=== PATIENT | female | born 1980 | race American Indian/Alaskan Native ===

== ENCOUNTER 2016-07-23 12:07 | Emergency (ER) | payer SELFPAY ==
[2016-07-23 12:53] LABS: Basophils % (Auto) 0.2 % (0.0-1.8); Eosinophils % (Auto) 0.5 % (0.0-4.3); Hematocrit 32.3 % (30.3-42.9); Hemoglobin 10.6 gm/dl (10.1-14.3); Mean Corpuscular HGB Conc 33 % (30-34); Mean Corpuscular Hemoglobin 27 pg (28-32); Mean Corpuscular Volume 83 fl (79-97); Platelet Count 160 K/mm3 (140-440); Red Blood Count 3.89 M/mm3 (3.65-5.03); Red Cell Distribution Width 14.4 % (13.2-15.2); White Blood Count 4.6 K/mm3 (4.5-11.0)
[2016-07-23 13:18] LABS: Anion Gap 18 mmol/L; Blood Urea Nitrogen 4 mg/dL (7-17); Calcium 8.7 mg/dL (8.4-10.2); Carbon Dioxide 23 mmol/L (22-30); Chloride 101.8 mmol/L (98-107); Glucose 93 mg/dL (65-100); Potassium 4.3 mmol/L (3.6-5.0); Sodium 138 mmol/L (137-145)
[2016-07-23 13:42] LABS: Amylase 101 units/L (27-131); Lipase 20 units/L (13-60)
--- NOTE | 2016-07-23 13:49 | Emergency Department Report ---
Entered by WISAM MCKEON, acting as scribe for BRIGITTE ZAYAS PA. Chief Complaint: Nausea/Vomiting/Diarrhea Stated Complaint: VOMITTING /FATIGUE Time Seen by Provider: 07/23/16 12:58 - HPI History of Present Illness: 36 y/o female presents with possible after taking two positive home tests. Pt denies abd pain, vaginal bleeding or discharge, burning during urination, chest pain or SOB. LMP was 05/08/2016, she has two children, this is her third . - ROS Review of Systems: as noted in HPI - Exam Vital Signs: Vital Signs 07/23/16 12:33 Temperature 99.4 F Pulse Rate 102 H Respiratory 20 Rate Blood Pressure 142/81 O2 Sat by Pulse 99 Oximetry Physical Exam: General: 36-year-old female in no acute distress. Well-developed, well- nourished. CV: Regular rate and rhythm. No murmurs rubs or gallops. Lungs: Clear to auscultation bilaterally. Abdomen: No tenderness to palpation. No guarding or rebound tenderness. Normal bowel sounds. Mini Neuro: Alert and oriented 3. MSE screening note: Focused history and physical exam performed. Due to findings the following was ordered: ED Medical Decision Making - Lab Data Result diagrams: 07/23/16 12:43 ED Disposition for MSE Condition: Stable This documentation as recorded by the scribe,WISAM MCKEON,accurately reflects the service I personally performed and the decisions made by ,BRIGITTE ZAYAS PA.
[2016-07-23 14:48] LABS: Bilirubin,Urine NEG (Negative); Blood,Urine NEG (Negative); Ketones,Urine NEG (Negative); Leukocyte Esterase,Urine NEG (Negative); Mucus,Urine FEW /HPF; Nitrite,Urine NEG (Negative); Protein,Urine <15 mg/dL mg/dL (Negative); Urobilinogen,Urine < 2.0 mg/dL (<2.0); WBC,Urine < 1.0 /HPF (0.0-6.0)
[2016-07-23] MEDS ORDERED: NACL 0.9% 1000 ML 1,000 ML IV ONE (16:10)
--- NOTE | 2016-07-23 16:35 | Emergency Department Report ---
HPI - General Chief Complaint: Nausea/Vomiting/Diarrhea Time Seen by Provider: 07/23/16 12:58 - HPI HPI: This is a 36-year-old Afro-Chinese female who presents to the emergency department with complaint of a few days of nausea, vomiting and extreme fatigue while . The patient says that her last menstrual cycle is May 082016. She took a home test was positive. However she has not had any care and has not been on vitamins. She does not have a LEAD APPLIER. With this the patient would be with 2 live children. One previous vaginal delivery and one previous . She is not taken anything for symptoms prior to presentation. No recent travel or sick contacts at home. She denies any fever, back pain, dysuria, vaginal bleeding or discharge. She occasionally has some abdominal cramping. ED Past Medical Hx - Past Medical History Previous Medical History?: Yes Additional medical history: vaginal delivery x1 - Surgical History Past Surgical History?: Yes Additional Surgical History: x 1 - Social History Smoking Status: Never Smoker Substance Use Type: None - Medications Home Medications: Home Medications Medication Instructions Recorded Confirmed Last Taken Type Vit No.130/Iron/FA 1 each PO QDAY #30 tablet 07/23/16 Unknown Rx [ Tablet] ED Review of Systems ROS: Stated complaint: VOMITTING /FATIGUE Other details as noted in HPI Comment: All other systems reviewed and negative Constitutional: other (fatigue). denies: chills, fever Eyes: denies: eye pain, eye discharge, vision change ENT: denies: ear pain, throat pain Respiratory: denies: cough, shortness of breath, wheezing Cardiovascular: denies: chest pain, palpitations Gastrointestinal: abdominal pain (cramping), nausea, vomiting Genitourinary: denies: urgency, dysuria, discharge Musculoskeletal: denies: back pain, joint swelling, arthralgia Skin: denies: rash, lesions Neurological: denies: headache, weakness, paresthesias Physical Exam - Physical Exam Vital Signs: Vital Signs 07/23/16 07/23/16 12:33 15:24 Temperature 99.4 F Pulse Rate 102 H 74 Respiratory 20 16 Rate Blood Pressure 142/81 Blood Pressure 123/76 [Left] O2 Sat by Pulse 99 95 Oximetry Physical Exam: GENERAL: The patient is well-developed well-nourished. HEENT: Normocephalic. Atraumatic. Extraocular motions are intact. Patient has moist mucous membranes. Pupils equal reactive to light bilaterally. No nystagmus. NECK: Supple. Trachea is midline. CHEST/LUNGS: Clear to auscultation. There is no respiratory distress noted. HEART/CARDIOVASCULAR: Regular. There is no tachycardia. There is no gallop rub or murmur. ABDOMEN: Abdomen is soft, nontender. Patient has normal bowel sounds. There is no abdominal distention. No guarding rebound tenderness. SKIN: Skin is warm and dry. NEURO: The patient is awake, alert, and oriented. The patient is cooperative. The patient has no focal neurologic deficits. The patient has normal speech. Cranial nerves II through XII grossly intact. MUSCULOSKELETAL: There is no tenderness or deformity. There is no limitation range of motion. There is no evidence of acute injury. Muscle strength 5 out of 5 for upper and lower extremities bilateral. ED Course Vital Signs 07/23/16 07/23/16 12:33 15:24 Temperature 99.4 F Pulse Rate 102 H 74 Respiratory 20 16 Rate Blood Pressure 142/81 Blood Pressure 123/76 [Left] O2 Sat by Pulse 99 95 Oximetry ED Medical Decision Making - Lab Data Result diagrams: 07/23/16 12:43 07/23/16 12:43 - EKG Data -: EKG Interpreted by Mi EKG shows normal: sinus rhythm, axis, intervals, QRS complexes (Q waves to the septal leads), ST-T waves Rate: normal - EKG Data When compared to previous EKG there are: previous EKG unavailable Interpretation: other (Q waves to the septal leads) - Radiology Data Radiology results: report reviewed Ultrasound evaluation of the gravid uterus shows a single viable intrauterine at about 12 weeks. Inferior placental margin adjacent to the region of the internal cervical os. Wet marginal or slight placenta previa. Possible small subchorionic bleed. - Medical Decision Making 36-year-old female with no previous care presents with some dizziness and generalized weakness. Patient's labs are mostly unremarkable. She had no signs of infection in the blood or urine, normal electrolytes, no renal or glucose abnormalities. She has normal thyroid function. She has a strong beta hCG hormone. ultrasound shows a live intrauterine at about 12 weeks. Vital signs stable including being afebrile. Patient was reevaluated multiple times of her multiple hours and has remained stable. She was ambulatory in the emergency department and appeared stable while doing so. Patient was started on vitamins and given multiple referrals for OB/ LEAD APPLIER. She will return to the ER with any worsening of her symptoms or any acute distress. - Differential Diagnosis , miscarriage, hypothyroidism, diabetes, orthostatic hypotension Critical Care Time: No Critical care attestation.: If time is entered above; I have spent that time in minutes in the direct care of this critically ill patient, excluding procedure time. ED Disposition Clinical Impression: Dizziness Qualifiers: Weeks of gestation: 17 weeks Qualified Code(s): Z3A.17 - 17 weeks gestation of Disposition: DISCHARGED TO HOME OR SELFCARE Is pt being admited?: No Condition: Stable Instructions: (ED), Lightheadedness (ED), Dizziness (ED) Additional Instructions: Please follow-up with an WEB COMMUNICATIONS SPECIALIST in the next few days. Return to the emergency department with any worsening of your symptoms or any acute distress. I have started you on vitamins. You can take Tylenol every 4 hours as needed , using weight-based dosing, for discomfort or any fever. Otherwise do not take any medications that are not prescribed by a physician. Prescriptions: Vit No.130/Iron/FA [ Tablet] 1 each PO QDAY #30 tablet Referrals: SAGAR LEON MD [Primary Care Provider] - 3-5 Days GERMAN BLACKBURN MD [Staff Physician] - 3-5 Days KEVIN GRIFFIN MD [Staff Physician] - 3-5 Days Time of Disposition: 19:27
--- NOTE | 2016-07-23 18:39 | Ultrasound Report ---
FINAL REPORT EXAM: US OB \T\lt; = 14 WEEKS FETUS HISTORY: preg, abd pain TECHNIQUE: Ultrasound evaluation of the gravid uterus PRIORS: None. FINDINGS: A gestational sac is present in the endometrial cavity containing a pole. viability is documented with evidence of cardiac activity. pole crown-rump length: 52.8 mm heart rate: 172 beats per minute Estimated gestational age by ultrasound: 12 weeks 0 days Estimated delivery date: 02/04/2017 The uterine echotexture is homogenous and without evidence of mass. Closed cervix with 3.8 cm length. Inferior placental margin is noted adjacent to the region of the internal cervical os. This may reflect marginal or slight placenta previa. Thin crescentic hypoechoic collection adjacent to the gestational sac is suggestive of a subchorionic bleed measuring 2.3 x 4.7 cm, and 4 mm thick No evidence of solid ovarian mass. The adnexa are normal. There is no cul-de-sac free fluid. IMPRESSION: Single viable early intrauterine with the above parameters Inferior placental margin adjacent to the region of the internal cervical os may reflect marginal or slight placenta previa Small collection adjacent to the inferior margin of the gestational sac suggestive of subchorionic hemorrhage
[2016-07-23 19:48] VITALS: BP 155/84
== END 2016-07-23 20:07 | disposition home or self-care (01) ==
LOC: ED 12:07
DX: O26.892 Other specified pregnancy related conditions, second trimester (principal); R42 Dizziness and giddiness; Z3A.17 17 weeks gestation of pregnancy
CPT/HCPCS: 36415; 76801; 80048; 81001; 82150; 82962; 83690; 84443; 84702; 85025; 93005; 93010; 96360; 99284; J7030

== ENCOUNTER 2016-09-17 08:10 | Outpatient (CLI) | payer SELFPAY ==
--- NOTE | 2016-09-17 09:19 | Emergency Department Report ---
ED HPI - General Chief complaint: Recheck/Abnormal Lab/Rx Stated complaint: ABD PAIN Time Seen by Provider: 09/17/16 08:37 Source: patient Mode of arrival: Ambulatory Limitations: No Limitations - History of Present Illness Initial comments: PT states she is 19 weeks . PT states yesterday she was walking down the stairs and she slipped and fell, landing on her R abd. PT states she quickly got up. PT states she had abd pain last night. PT states she does not have any pain currently but she wants a scan to check the baby. PT denies having an quality control projectionist or any care for this . PT is Complaint: abdominal trauma -: Sudden Location: abdomen Consistency: now resolved Associated symptoms: nausea/vomiting, abdominal pain. denies: vaginal bleeding , vaginal discharge Vaginal bleeding: none :: Yes Number of weeks : 19 OB History - Current : no complications (that pt is aware of) OB History - Previous Pregnancies: other (pt needed with previous ) Pre- care: previous ultrasound confi (done in this ED ) - Related Data : 3 Para: 2 Previous Rx's Medication Instructions Recorded Last Taken Type Vit-Fe Fumar-FA [ 1 tab PO QDAY #30 tablet 09/17/16 Unknown Rx Vitamin] Allergies Allergy/AdvReac Type Severity Reaction Status Date / Time No Known Allergies Allergy Verified 09/17/16 08:17 ED Review of Systems ROS: Stated complaint: ABD PAIN Other details as noted in HPI Comment: All other systems reviewed and negative Respiratory: denies: cough Cardiovascular: denies: chest pain, syncope Gastrointestinal: abdominal pain (now resolved ), vomiting (x 1 - yesterday ) Genitourinary: denies: dysuria, discharge Musculoskeletal: denies: back pain ED Past Medical Hx - Past Medical History Previous Medical History?: No Additional medical history: vaginal delivery x1 - Surgical History Additional Surgical History: x 1 - Social History Smoking Status: Never Smoker Substance Use Type: None - Medications Home Medications: Home Medications Medication Instructions Recorded Confirmed Last Taken Type Vit-Fe Fumar-FA [ 1 tab PO QDAY #30 tablet 09/17/16 Unknown Rx Vitamin] ED Physical Exam - General Limitations: No Limitations General appearance: alert, in no apparent distress - Head Head exam: Present: atraumatic, normocephalic, normal inspection - Eye Eye exam: Present: normal appearance, PERRL. Absent: conjunctival injection - ENT ENT exam: Present: normal exam, normal external ear exam - Neck Neck exam: Present: normal inspection, full ROM. Absent: tenderness - Respiratory Respiratory exam: Present: normal lung sounds bilaterally. Absent: respiratory distress, wheezes - Cardiovascular Cardiovascular Exam: Present: regular rate, normal rhythm - GI/Abdominal GI/Abdominal exam: Present: soft, normal bowel sounds, other (pt has small umbilical hernia, able to reduce, pt is gravid. uterus palpated above the umbilicus ). Absent: tenderness - Extremities Exam Extremities exam: Present: normal inspection, full ROM - Back Exam Back exam: Present: normal inspection, full ROM. Absent: tenderness, CVA tenderness (R), CVA tenderness (L), paraspinal tenderness, vertebral tenderness - Neurological Exam Neurological exam: Present: alert, oriented X3 - Psychiatric Psychiatric exam: Present: normal affect, normal mood - Skin Skin exam: Present: warm, dry, intact, normal color ED Course Vital Signs 09/17/16 09/17/16 08:21 13:30 Temperature 99.4 F Pulse Rate 103 H 86 Respiratory 17 16 Rate Blood Pressure 129/87 Blood Pressure 119/80 [Right] O2 Sat by Pulse 100 100 Oximetry - Reevaluation(s) Reevaluation #1: 09/17/16 10:04 PT aware no signs of trauma on US. Reevaluation #2: 09/17/16 12:58 Ua results available at this time. PT's us shows that pt is 20 weeks, will transfer to the [facility] for evaluation. Dr Chaparro aware of plan of care. PT states she is not on vitamins, will give her RX for vitamins. pt aware she will need to follow up with HEEL TRIMMER - Consultations Consultation #1: 09/17/16 13:41 Spoke with Julia, charge nurse of [facility], will evaluate pt. - Pulse Oximetry Interpretation Digit-Finger Initial Pulse Oximetry Readin Actions Taken: none ED Medical Decision Making - Radiology Data Radiology results: report reviewed US - 20 weeks gestation, no traumatic injury - Differential Diagnosis threatened ab, uti, abd trauma Critical Care Time: No Critical care attestation.: If time is entered above; I have spent that time in minutes in the direct care of this critically ill patient, excluding procedure time. ED Disposition Clinical Impression: Fall Qualifiers: Encounter type: initial encounter Qualified Code(s): W19.XXXA - Unspecified fall, initial encounter Qualifiers: Weeks of gestation: 20 weeks Qualified Code(s): Z3A.20 - 20 weeks gestation of Disposition: DC-01 TO HOME OR SELFCARE Is pt being admited?: No Does the pt Need Aspirin: No Condition: Stable Time of Disposition: 13:01
--- NOTE | 2016-09-17 09:50 | Ultrasound Report ---
OBSTETRICAL ULTRASOUND: 09/17/16 08:42:00 CLINICAL:. Slipped last night. Abdominal pain. COMPARISON:None. Gestation: [place] Position: Cephalic Amniotic Fluid: Normal Placenta: Posterior fundal with no evidence of placental abruption or placenta previa. The subchorionic hemorrhage. Placental Grade: 0 Heart Rate: 161 BPM Closed cervix. Cervical length: 3.7 cm (Normal > 3 cm) NEUROANATOMY VISUALIZED: Choroid Plexus Cisterna Magnum Cerebellum Lateral Ventricle ANATOMY VISUALIZED: Stomach Kidneys Bladder Diaphragm 4 Chamber Heart Heart 3 Vessel Cord Abd. Cord Insert SPINE VISUALIZED: Longitudinal Transverse BPD: 4.8 cm = 20 w 3 d HC: 17.4 cm = 20 w 0 d AC: 14.7 cm = 20 w 0 d FL: 3.1 cm = 19 w 4 d HC/AC Ratio: 1.19 Cephalic Index: 84.1 Estimated Weight: 314 grams IMPRESSION: Single living intrauterine fetus. No apparent traumatic injury. Clinical age = 18 w 6 d EDC: 02/12/17 US Gest. Age = 20 w 0 d EDC: 02/04/17
[2016-09-17 12:34] LABS: Bilirubin,Urine NEG (Negative); Blood,Urine NEG (Negative); Ketones,Urine NEG (Negative); Leukocyte Esterase,Urine NEG (Negative); Mucus,Urine FEW /HPF; Nitrite,Urine NEG (Negative); Protein,Urine <15 mg/dL mg/dL (Negative); Urobilinogen,Urine < 2.0 mg/dL (<2.0)
[2016-09-17 14:53] VITALS: BP 113/66
== END 2016-09-17 16:08 | disposition home or self-care (01) ==
LOC: ED 08:10 → EDSTATUS 14:33 → TRG 14:36
PROVIDERS: ATTEND Obstetrics & Gynecology
DX: O26.892 Other specified pregnancy related conditions, second trimester (principal); R10.9 Unspecified abdominal pain; O47.02 False labor before 37 completed weeks of gestation, second trimester; W01.0XXA Fall on same level from slipping, tripping and stumbling without subsequent striking against object, initial encounter; Z3A.20 20 weeks gestation of pregnancy; Y93.89 Activity, other specified; Y92.89 Other specified places as the place of occurrence of the external cause; Y99.8 Other external cause status
CPT/HCPCS: 59020; 76805; 81001

== ENCOUNTER 2020-09-25 11:30 | Inpatient (IN) | payer OTHER ==
[2020-09-26] MEDS ORDERED: METOCLOPRAMIDE 10 MG/2 ML INJ IV ONE (05:17)
[2020-09-26] MEDS ORDERED: BICITRA ORAL LIQD 30ML PO ONE (05:17)
[2020-09-26] MEDS ORDERED: FAMOTIDINE 20 MG/2 ML INJ IV ONE (05:17)
[2020-09-26] MEDS ORDERED: LOPERAMIDE 2 MG CAP PO PRN (05:19)
[2020-09-26] MEDS ORDERED: CARBOPROST TROMETHAMINE 250 MCG/1 ML INJ IM PRN (05:19)
[2020-09-26] MEDS ORDERED: METHYLERGONOVINE MALEATE 0.2 MG/ML VIAL IM PRN (05:19)
[2020-09-26] MEDS ORDERED: miSOPROStol 200 MCG TAB PR PRN (05:19)
--- NOTE | 2020-09-26 05:29 | History and Physical Report ---
History of Present Illness Date of examination: 09/22/20 Chief complaint: scheduled section History of present illness: Pt is a 40 year old female SHIVANI 10/02/20 at 39w1d who presents for scheduled repeat secondary to previous x 2. She reports rare contractions, and denies vaginal bleeding or leakage of fluid. 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 She is GBS negative. 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: herpes (no lesions ot prodrome ) Family/Genetic History: none Social history: - Obstetrical History Expected Date of Delivery: 10/02/20 Actual Gestation: 39 Week(s) 1 Day(s) : 4 Para: 3 Hx # Term Pregnancies: 3 Number of Pregnancies: 0 Spontaneous Abortions: 0 Induced : 0 Number of Living Children: 3 Medications and Allergies Allergies Allergy/AdvReac Type Severity Reaction Status Date / Time No Known Allergies Allergy Verified 09/17/16 08:17 Home Medications Medication Instructions Recorded Confirmed Last Taken Type Vit-Fe Fumar-FA [ 1 tab PO QDAY #30 tablet 09/17/16 02/02/17 1 Day Ago Rx Vitamin] ~02/01/17 Ferrous Sulfate [Feosol 325 MG tab] 325 mg PO BID #90 tablet 02/03/17 Unknown Rx Ibuprofen [Motrin] 600 mg PO Q8H PRN #30 tablet 02/03/17 Unknown Rx oxyCODONE /ACETAMINOPHEN [Percocet 1 tab PO Q6HR PRN #30 tablet 02/03/17 Unknown Rx 5/325] Active Meds: Active Medications Carboprost Tromethamine (Carboprost Tromethamine 250 Mcg/1 Ml Inj) 250 mcg IM ONCE PRN PRN Reason: Bleeding Citric Acid/Sodium Citrate (Bicitra Oral Liqd 30ml) 30 ml PO ONCE ONE Stop: 09/26/20 05:18 Famotidine (Famotidine 20 Mg/2 Ml Inj) 20 mg IV ONCE ONE Stop: 09/26/20 05:18 Lactated Ringer's (Lactated Ringers) 1,000 mls @ 2,250 mls/hr IV PREOP THA Stop: 09/27/20 05:57 Oxytocin/Sodium Chloride (Pitocin/Ns 30 Unit/500ml) 30 units in 500 mls @ 0 mls/hr IV TITR THA; Protocol Cefazolin Sodium (Ancef/Sterile Water 2 Gm/20 Ml) 2 gm in 20 mls @ 80 mls/hr IV PREOP NR; Protocol Loperamide HCl (Loperamide 2 Mg Cap) 2 mg PO Q2H PRN PRN Reason: Diarrhea Methylergonovine Maleate (Methylergonovine Maleate 0.2 Mg/Ml Vial) 0.2 mg IM ONCE PRN PRN Reason: Bleeding Metoclopramide HCl (Metoclopramide 10 Mg/2 Ml Inj) 10 mg IV ONCE ONE Stop: 09/26/20 05:18 Misoprostol (Misoprostol 200 Mcg Tab) 800 mcg IN ONCE PRN PRN Reason: Bleeding Review of Systems All systems: negative - Physical Exam Breasts: Positive: deferred Abdomen: Positive: soft (gravid) Uterus: Positive: enlarged (gravid) Extremities: Positive: normal - Obstetrical FHR: auscultation normal Uterine Contraction Monitor Mode: External Uterine Contraction Pattern: Absent Uterine Tone Measurement Phase: Resting Results All other labs normal. Assessment and Plan A: IUP at 39w1d Previous x 2 Advanced Maternal Age Silent Carrier for Alpha Thalassemia Intermittent right flank pain LGA fetus Genital Herpes GBS Negative P: Proceed with repeat section and other indicated procedures. Urinalysis
[2020-09-26] MEDS ORDERED: LACTATED RINGERS 1,000 ML IV SCH (05:30)
[2020-09-26] MEDS ORDERED: OXYTOCIN DRIP 30 UNITS/500 ML BAG IV SCH ×2 (06:00→11:28)
[2020-09-26] MEDS ORDERED: ceFAZolin/Water 2 GM/20 ML 2 GM/20 ML SYRINGE IV NR (06:00)
--- NOTE | 2020-09-26 06:11 | Anesthesia Day of Surgery ---
Anesthesia Day of Surgery - Day of Surgery Patient Examined: Yes Patient H&P Reviewed: Yes Patient is NPO: Yes Beta Blockers: No Cardiac Clearance: No Pulmonary Clearance: No Steven's Test: N/A
--- NOTE | 2020-09-26 06:14 | Anesthesia Consultation ---
Anesthesia Consult and Med Hx Date of service: 09/26/20 - Airway Anesthetic Teeth Evaluation: Good ROM Head & Neck: Adequate Mental/Hyoid Distance: Adequate Mallampati Class: Class II Intubation Access Assessment: Probably Good - Pulmonary Exam CTA: Yes - Cardiac Exam Cardiac Exam: RRR - Pre-Operative Health Status ASA Pre-Surgery Classification: ASA2 Proposed Anesthetic Plan: Epidural, Spinal - Pulmonary Hx Smoking: No Hx Asthma: No Hx Respiratory Symptoms: No SOB: No COPD: No Home Oxygen Therapy: No Hx Pneumonia: No Hx Sleep Apnea: No - Cardiovascular System Hx Hypertension: No Hx Coronary Artery Disease: No Hx Heart Attack/AMI: No Hx Angina: No Hx Percutaneous Transluminal Coronary Angioplasty (PTCA): No Hx Cardia Arrhythmia: No Hx Pacemaker: No Hx Internal Defibrillator: No Hx Valvular Heart Disease: No Hx Heart Murmur: No Hx Peripheral Vascular Disease: No - Central Nervous System Hx Neuromuscular Disorder: No Hx Seizures: No CVA: No Hx Back Pain: No Hx Psychiatric Problems: No - Gastrointestinal Hx Ulcer: No Hx Gastroesophageal Reflux Disease: Yes - Endocrine Hx Renal Disease: No Hx End Stage Renal Disease: No Hx Cirrhosis: No Hx Liver Disease: Yes (Hep B) Hx Insulin Dependent Diabetes: No Hx Non-Insulin Dependent Diabetes: No Hx Thyroid Disease: No Hx Hypothyroidism: No Hx Hyperthyroidism: No - Hematic Hx Anemia: Yes (Gestsational thrombocytopenia) Hx Sickle Cell Disease: No - Other Systems Hx Alcohol Use: No Hx Substance Use: No Hx Cancer: No Hx Obesity: No
[2020-09-26 07:08] LABS: Basophils % (Auto) 0.3 % (0.0-1.8); Eosinophils # (Auto) 0.1 K/mm3 (0.0-0.4); Eosinophils % (Auto) 1.4 % (0.0-4.3); Hematocrit 35.1 % (30.3-42.9); Hemoglobin 11.8 gm/dl (10.1-14.3); Lymphocytes # (Auto) 1.4 K/mm3 (1.2-5.4); Lymphocytes % (Auto) 26.6 % (13.4-35.0); Mean Corpuscular HGB Conc 34 % (30-34); Mean Corpuscular Volume 90 fl (79-97); Monocytes # (Auto) 0.4 K/mm3 (0.0-0.8); Monocytes % (Auto) 6.6 % (0.0-7.3); Platelet Count 117 K/mm3 (140-440); Red Cell Distribution Width 14.1 % (13.2-15.2)
[2020-09-26] MEDS ORDERED: ONDANSETRON 4 MG/2 ML INJ ONE ×2 (07:42)
[2020-09-26] MEDS ORDERED: SODIUM CHLORIDE 0.9% IRR 1,500 ML BOTTLE IR ONE (08:30)
[2020-09-26] MEDS ORDERED: WATER FOR IRRIG STERILE 1,500 ML BOTTLE IR ONE (08:31)
[2020-09-26] MEDS ORDERED: BUPIVACAINE/PF (0.5%) 5 MG/1 ML 30 ML VIAL INFILTRATI ONE (08:48)
[2020-09-26] MEDS ORDERED: dexAMETHasone 20 MG/5 ML VIAL ONE (08:49)
[2020-09-26] MEDS ORDERED: SODIUM CHLORIDE 0.9% 100 ML ONE (08:49)
--- NOTE | 2020-09-26 09:33 | Procedure Note ---
OB Delivery Note - Delivery Date of Delivery: 09/26/20 Surgeon: CANDY MANNING Estimated blood loss: other (600 mL) - Section Preop diagnosis: repeat Postop diagnosis: same section procedure: section, repeat low transverse Disposition: PACU Narrative: Please see operative report - A at 1 minute: 9 at 5 minutes: 9 Infant Gender: Male (3632g (8lb 0oz) @ 0840 am)
--- NOTE | 2020-09-26 09:39 | Operative Report ---
Operative Report Operative Report: Date of procedure: September 26, 2020 Preoperative diagnosis: 1) IUP at 39w1d 2) Previous x 2 3) Advanced Maternal Age Postoperative diagnosis: Same Procedure: Repeat low transverse section Surgeon: Mary Loza M.D. Anesthesia: Regional Findings: 1) Viable male , Apgars 9 and 9, weight 3632 g, (8 lb 0 oz) in cephalic presentation. Nuchal cord x 1. Thin Meconium. 2) Normal-appearing uterus ovaries and tubes Estimated blood loss: 600 mL IV fluids: 1500 mL Urine output: 100 mL, clear at the end of the procedure Drains: Quiroz to gravity Specimens: None Complications:None. Counts correct x 3 Disposition: Stable to PACU Indication for procedure: Pt is a 40 year old female at 39w1d with two prior sections presents for scheduled repeat . Operation in detail: After the risks, benefits, alternatives and complications were explained to the patient she gave informed consent for the procedure. She was subsequently taken to the operating room where regional anesthesia was noted to be adequate. She was placed in the dorsal supine position with leftward tilt and prepped and draped in a normal sterile fashion. heart tones were noted prior to incision. A timeout was performed. A Pfannenstiel skin incision was made with the knife and carried down to the layer of the fascia with the Bovie. The fascia was incised in the midline and the fascial incision was extended bilaterally with the Bovie. The fascial incision was then stretched. The rectus muscles were then in the midline and partially transected for adequate visualization. The peritoneum was then entered bluntly. The peritoneal incision was extended with good vi sualization of the bladder. The peritoneal incision was then stretched. An Nitish retractor was placed. The bladder blade was then placed. The vesicouterine peritoneum was grasped with smooth pick ups and incised with Metzenbaum scissors . A bladder flap was then created digitally and the bladder blade was replaced. A transverse incision was made in the lower uterine segment with a knife and extended bilaterally with the bandage scissors. Amniotomy was performed with egress of meconium stained amniotic fluid. head delivered with ease, followed by shoulders and body. bulb suctioned at delivery. Cord clamped and cut. handed to NICU staff in attendance. Cord blood was collected. The placenta was then delivered manually. The uterus was then exteriorized and cleared of all clots and debris. The hysterotomy was then reapproximated with 0 Monocryl in a running locked fashion. A second layer of the same suture was used in imbricating fashion. The hysterotomy was inspected and hemostasis was noted. The gutters were irrigated and cleared of all clots and debris. The hysterotomy was again inspected and noted to be hemostatic. Surgicel was placed over the hysterotomy. The Nitish retractor was removed. The uterus was placed back into the peritoneal cavity. The peritoneum was reapproximated with 2-0 Vicryl in a running fashion incorporating the rectus muscles. Surgicel was placed over the rectus muscles. The fascia was reapproximated with 0 Vicryl in a running fashion. The skin was reapproximated with 4-0 Vicryl in a subcuticular fashion. The incision was then covered with steri strips and a pressure dressing. The procedure was then ended. The patient tolerated the procedure well and was taken to the PACU in stable condition. All instrument, lap, and needle counts were correct 3.
--- NOTE | 2020-09-26 10:51 | Progress Note ---
Spinal Anesthesia Block - Spinal Anesthesia Block Start Time: 07:49 Stop Time: 08:00 Performed by:: BENI RAZO Procedure: Patient IDed, H&P reviewed, all questions and concerns were answered, and consent was signed. Timeout was performed at bedside. Patient in sitting position. Sterile prep and drape was performed. [3] ml of 1% lidocaine skin wheal at L[3]- L [4]. Needle introducer advanced. 25 gauge spinal needle advanced. Clear, free flowing CSF. negative blood, negative paresthesia. Spinal dose given. All needles removed. Patient tolerated procedure.
--- NOTE | 2020-09-26 10:52 | Progress Note ---
Regional Anesthesia Block - Regional Anesthesia Block Start Time: 09:40 Stop Time: :48 Performed By:: BENI RAZO Procedure: Patient consented for TAP block for post surgical pain management. Patient identified, monitors placed, and time out performed. TAP identified bilaterally via ultrasound. Skin prepped bilaterally with [chlorhexidine] and [22g stimuplex] needle advanced to the TAP. [Marcaine 0.22% 35ml] injected under ultrasound guidance on the [left] side. [Marcaine 0.22% 35ml] injected under ultrasound guidance on the [right] side. Negative aspiration every 5mL, No change in heart rate or rhythm. Patient tolerated the procedure well. No apparent complications seen.
--- NOTE | 2020-09-26 10:54 | Post Anesthesia Evaluation ---
- Post Anesthesia Evaluation Patient Participated: Yes Airway Patent: Yes Stable Respiratory Function: Yes Nausea/Vomiting: No Temp > 96.8F: Yes Pain Manageable: Yes Adequeate Hydration: Yes Anesthesia Complications: No Block Receding Appropriately: Yes Patient on Ventilator: No
[2020-09-26] MEDS ORDERED: SIMETHICONE 80 MG CHEW TAB PO PRN (11:28)
[2020-09-26] MEDS ORDERED: LANOLIN/ZINC/DIMETHICONE (LANSINOH) 7 GM TP PRN (11:28)
[2020-09-26] MEDS ORDERED: ONDANSETRON 4 MG/2 ML INJ IV PRN (11:28)
[2020-09-26] MEDS ORDERED: MAGNESIUM HYDROXIDE (MOM) ORAL LIQD UDC PO PRN (11:28)
[2020-09-26] MEDS ORDERED: NALOXONE 0.4 MG/1 ML INJ IV PRN (11:28)
[2020-09-26] MEDS ORDERED: WITCH HAZEL/ GLYCERIN PAD TP PRN (11:28)
[2020-09-26] MEDS ORDERED: MORPHINE 4 MG/1 ML INJ IV PRN (11:28)
[2020-09-26] MEDS ORDERED: MORPHINE 2 MG/1 ML INJ IV PRN (11:28)
[2020-09-26] MEDS ORDERED: SODIUM CHLORIDE 0.9% 1000 ML 1,000 ML ONE (15:42)
[2020-09-26] MEDS: ceFAZolin/NS 1 GM/50 ML 1 GM/50 ML BAG IV SCH ×2 (16:08→23:00)
[2020-09-26 16:32] LABS: Bacteria,Urine 1+ /HPF (Negative); Bilirubin,Urine NEG (Negative); Blood,Urine NEG (Negative); Color,Urine Straw (Yellow); Protein,Urine <15 mg/dL mg/dL (Negative); RBC,Urine < 1.0 /HPF (0.0-6.0); Urobilinogen,Urine < 2.0 mg/dL (<2.0)
[2020-09-26 16:58] LABS: Mucus,Urine FEW /HPF
[2020-09-26 21:50] LABS: Hemoglobin 11.1 gm/dl (10.1-14.3)
[2020-09-26] MEDS: oxyCODONE /ACETAMINOPHEN 5-325MG TAB PO PRN (22:56)
[2020-09-27] MEDS: oxyCODONE /ACETAMINOPHEN 5-325MG TAB PO PRN ×3 (05:33→16:58)
[2020-09-27] MEDS ORDERED: TETANUS,DIPH,PERTUSS(ACELL) VACCINE 0.5 ML SYRINGE IM ONE (06:00)
[2020-09-27] MEDS ORDERED: MEASLES, MUMPS & RUBELLA 12,500 UNIT/0.5 ML VACCINE SUB-Q ONE (06:00)
[2020-09-27] MEDS: FERROUS SULFATE 325 MG TAB PO SCH (10:40)
--- NOTE | 2020-09-27 11:38 | Progress Note ---
Assessment and Plan A: POD#1 s/p repeat section at term Suboptimal pain control Thrombocytopenia P: Check CBC, if platelet count improved consider NSAID Closely monitor clinical status Begin bowel regimen Subjective - Subjective Date of service: 09/27/20 Principal diagnosis: s/p repeat at term Interval history: Pt reports subptimal pain control. She was not given Toradol due to her thrombocytopenia. Otherwise she has no complaints. Patient reports: appetite normal, voiding normally, pain well controlled, flatus (minimal ), ambulating normally, no bowel movement : doing well Objective - Vital Signs Latest vital signs: Vital Signs Temp Pulse Resp BP Pulse Ox 09/27/20 08:21 98.0 F 55 L 18 137/76 100 09/27/20 05:33 18 09/27/20 01:03 97.0 F L 67 18 113/60 97 09/26/20 22:56 18 09/26/20 20:18 98.0 F 73 18 109/60 98 09/26/20 16:35 97.9 F 63 18 114/74 98 09/26/20 12:50 97.4 F L 62 18 105/66 100 Intake and Output 09/26/20 09/27/20 09/27/20 22:59 06:59 14:59 Intake Total 450 500 Output Total 4500 1800 Balance -4050 -1300 Intake: IV 50 ANCEF/NS 1 GM/50 ML 1 gm 50 In 50 ml @ 100 mls/hr IV Q8H [facility] Rx#:[id number] Oral 200 200 Intake, Free Water 200 300 Output: Urine 4500 1800 Indwelling Catheter 2600 Uretheral (Quiroz) 1100 Void 800 1800 Other: Total, Intake Amount 200 200 Total, Output Amount 800 800 # Voids Void 1 1 - Exam Breasts: Present: deferred Abdomen: Present: soft, distention (moderate ) Uterus: Present: fundal height at umbilicus Extremities: Present: normal Incision: Present: dressed
[2020-09-27] MEDS: LACTULOSE 20 GM/30 ML ORAL LIQD PO SCH (12:52)
[2020-09-27 14:14] LABS: Hematocrit 34.1 % (30.3-42.9); Hemoglobin 11.3 gm/dl (10.1-14.3); Mean Corpuscular HGB Conc 33 % (30-34); Mean Corpuscular Volume 90 fl (79-97); Platelet Count 143 K/mm3 (140-440); Red Cell Distribution Width 14.5 % (13.2-15.2)
[2020-09-27] MEDS ORDERED: IBUPROFEN 800 MG TAB PO PRN (21:34)
[2020-09-28] MEDS: IBUPROFEN 800 MG TAB PO SCH ×2 (05:08→13:43)
[2020-09-28] MEDS: LACTULOSE 20 GM/30 ML ORAL LIQD PO SCH (05:10)
[2020-09-28] MEDS ORDERED: TETANUS,DIPH,PERTUSS(ACELL) VACCINE 0.5 ML SYRINGE IM ONE (06:00)
--- NOTE | 2020-09-28 07:54 | Progress Note ---
Assessment and Plan - Patient Problems (1) Previous delivery, delivered Current Visit: No Status: Acute Plan to address problem: patient doing well discharge home Subjective - Subjective Date of service: 09/28/20 Principal diagnosis: s/p repeat at term Interval history: Patient without complaints. Tolerating regular diet Patient reports: appetite normal, voiding normally, pain well controlled, flatus, bowel movement : doing well Objective - Vital Signs Latest vital signs: Vital Signs Temp Pulse Resp BP BP Pulse Ox 09/28/20 05:08 12 09/28/20 00:00 98.7 F 74 16 114/78 09/27/20 16:20 98.4 F 77 18 119/79 100 09/27/20 08:21 98.0 F 55 L 18 137/76 100 Intake and Output 09/27/20 09/28/20 09/28/20 22:59 06:59 14:59 Intake Total 200 400 Balance 200 400 Intake: Oral 200 100 Intake, Free Water 300 Other: Total, Intake Amount 200 100 # Voids Void 1 1 - Exam Abdomen: Present: normal appearance, soft
--- NOTE | 2020-09-28 07:55 | Discharge Summary ---
Providers - Providers Date of Admission: 09/26/20 05:50 Date of discharge: 09/28/20 Attending physician: CANDY MANNING 09/26/20 11:28 Consult to Sheet Folder [CONS] Routine Reason For Exam: Primary care physician: [employer] Hospitalization Reason for admission: section Delivery: Procedure: section, repeat low transverse Discharge diagnosis: IUP at term delivered Hospital course: Patient admitted for scheduled . See op note. Postop uncomplicated Condition at discharge: Good Disposition: DC-01 TO HOME OR SELFCARE - Discharge Diagnoses (1) Previous delivery, delivered Status: Acute Plan - Discharge Medications Prescriptions: Ibuprofen [Motrin] 800 mg PO Q8HR PRN #60 tablet PRN Reason: Pain , Severe (7-10) oxyCODONE /ACETAMINOPHEN [Percocet 5/325] 1 tab PO Q6HR PRN #30 tablet PRN Reason: Pain - Provider Discharge Summary Activity: no sex for 6 weeks, no heavy lifting 4 weeks, no strenuous exercise Diet: routine Instructions: routine Additional instructions: [] Smoking cessation referral if applicable(refer to patient education folder for contact #) [] Refer to [facility] Booklet Call your doctor immediately for: * Fever > 100.5 * Heavy vaginal bleeding ( >1 pad per hour) * Severe persistent headache * Shortness of breath * Reddened, hot, painful area to leg or breast * Drainage or odor from incision. * Keep incision clean and dry at all times and follow doctor's instructions regarding bathing/showering schedule incision check in 2 weeks - Follow up plan
[2020-09-28] MEDS: FERROUS SULFATE 325 MG TAB PO SCH (09:57)
[2020-09-28 17:20] VITALS: BP 118/76
== END 2020-09-28 16:25 | disposition home or self-care (01) | DRG 787 ==
LOC: APU 09-26 05:50 → OB 09-26 10:45
PROVIDERS: ADMIT Obstetrics & Gynecology; ATTEND Obstetrics & Gynecology
PROC: 10D00Z1 Extraction of Products of Conception, Low, Open Approach (ICD-10-PCS; principal; 2020-09-26)
PROC: 3E0234Z Introduction of Serum, Toxoid and Vaccine into Muscle, Percutaneous Approach (ICD-10-PCS; 2020-09-27)
DX: O34.211 Maternal care for low transverse scar from previous cesarean delivery (principal); O98.32 Other infections with a predominantly sexual mode of transmission complicating childbirth; O69.81X0 Labor and delivery complicated by cord around neck, without compression, not applicable or unspecified; O99.12 Other diseases of the blood and blood-forming organs and certain disorders involving the immune mechanism complicating childbirth; O77.0 Labor and delivery complicated by meconium in amniotic fluid; D56.3 Thalassemia minor; A60.00 Herpesviral infection of urogenital system, unspecified; O99.62 Diseases of the digestive system complicating childbirth; K21.9 Gastro-esophageal reflux disease without esophagitis; D69.6 Thrombocytopenia, unspecified; O75.89 Other specified complications of labor and delivery; Z20.822 Contact with and (suspected) exposure to COVID-19; Z23 Encounter for immunization; Z3A.39 39 weeks gestation of pregnancy; Z37.0 Single live birth
CPT/HCPCS: 36415; 81001; 85014; 85018; 85025; 85027; 86850; 86900; 86901; G0378; J0690; J1100; J2270; J2405; J3490; U0003